=== PATIENT | female | born 1985 | race Caucasian/White ===

== ENCOUNTER 2016-10-10 15:52 | Emergency (ER) | payer MEDICARE, OTHER ==
[~2016-10-10 15:52] MED LIST: BACITRACIN30 GM TOP; BACTRIM DS TABL1 TA1 PO; BACTRIM DS TABL1 TAB PO; DIAZEPAM PO; ELIMITE60 GM TOP; FLEXERIL PO; KEFLEX PO; KEFLEX500 MG PO; LORTAB 10/500 T1 TAB PO; LORTAB 5/500 TA1 TA1 PO; METHADONE PO; NEURONTIN PO; PENICILLIN V P500 MG PO; PRENATAL MULITV1 TAB PO; PRENATAL1 TA1 PO; PYRIDIUM PO; VICODIN 5/500 T1 TAB PO; VICODIN PO; [UNRECOGNIZED DRUG - OTHER] PO
[2016-10-10] MEDS ORDERED: BIRTH CONTROL PILL (15:53)
== END 2016-10-10 16:40 | disposition home or self-care (01) ==
LOC: SED 15:52
DX: S01.81XA Laceration without foreign body of other part of head, initial encounter (principal); Z23 Encounter for immunization; F17.210 Nicotine dependence, cigarettes, uncomplicated; W22.8XXA Striking against or struck by other objects, initial encounter; Y92.009 Unspecified place in unspecified non-institutional (private) residence as the place of occurrence of the external cause
CPT/HCPCS: 12011; 90471; 90715; 99283